=== PATIENT | female | born 1965 | race Caucasian/White ===

== ENCOUNTER 2020-11-08 11:32 | Emergency (ER) | payer MEDICARE, OTHER ==
[2020-12-05] MEDS ORDERED: HYDROCODON-ACE1 EAC2 PO (08:08)
[2020-12-05] MEDS ORDERED: CLONAZEPAM 1MG T1 MG PO (08:08)
[2020-12-05] MEDS ORDERED: VRAYLAR6 MG PO (08:08)
[2020-12-05] MEDS ORDERED: SERTRALINE HCL100 MG PO (08:09)
[2020-12-05] MEDS ORDERED: BUPROPION XL300 MG PO (08:09)
[2020-12-05] MEDS ORDERED: BUMETANIDE0.5 MG PO (08:09)
[2020-12-05] MEDS ORDERED: BUMEX1 MG PO (08:10)
[2020-12-05] MEDS ORDERED: DIGOXIN250 MCG PO (08:11)
[2020-12-05] MEDS ORDERED: CARTIA XT180 MG PO (08:11)
[2020-12-05] MEDS ORDERED: TRULICITY1.5 MG/0.5 SC (08:12)
[2020-12-05] MEDS ORDERED: METFORMIN HCL500 M1 PO (08:12)
[2020-12-05] MEDS ORDERED: WARFARIN SODIUM5 MG PO (08:13)
[2020-12-05] MEDS ORDERED: ROSUVASTATIN CA10 MG PO (08:13)
[2020-12-05] MEDS ORDERED: IRON159 MG PO (08:14)
[2020-12-05] MEDS ORDERED: FAMOTIDINE20 MG PO (08:14)
[2020-12-05] MEDS ORDERED: BIOTIN1 M1 PO (08:15)
[2020-12-05] MEDS ORDERED: CENTRUM ADULT120 MCG PO (08:15)
[2020-12-05] MEDS ORDERED: VITAMIN D310 MCG PO (08:15)
[2020-12-05] MEDS ORDERED: ASCORBIC ACID500 MG PO (08:16)
[2020-12-10] MEDS ORDERED: PERCOCET 5-3251 EACH PO (07:08)
== END 2020-11-08 14:09 | disposition home or self-care (01) ==
LOC: FER 11:32
DX: S80.01XA Contusion of right knee, initial encounter (principal); M17.11 Unilateral primary osteoarthritis, right knee; F17.210 Nicotine dependence, cigarettes, uncomplicated; I48.91 Unspecified atrial fibrillation; Z23 Encounter for immunization; W01.0XXA Fall on same level from slipping, tripping and stumbling without subsequent striking against object, initial encounter; Y92.830 Public park as the place of occurrence of the external cause
CPT/HCPCS: 73130; 73564; 90471; 90714

== ENCOUNTER → 2020-12-10 | Day surgery (SDC) | payer MEDICARE, OTHER ==
[~2020-12-10] VITALS: Ht 162.6 cm; Wt 127.2 kg
[~2020-12-10] MED LIST: ASCORBIC ACID500 MG PO; BIOTIN1 M1 PO; BUMETANIDE0.5 MG PO; BUMEX1 MG PO; BUPROPION XL300 MG PO; CARTIA XT180 MG PO; CENTRUM ADULT120 MCG PO; CLONAZEPAM 1MG T1 MG PO; DIGOXIN250 MCG PO; FAMOTIDINE20 MG PO; HYDROCODON-ACE1 EAC2 PO; IRON159 MG PO; METFORMIN HCL500 M1 PO; PERCOCET 5-3251 EACH PO; ROSUVASTATIN CA10 MG PO; SERTRALINE HCL100 MG PO; TRULICITY1.5 MG/0.5 SC; VITAMIN D310 MCG PO; VRAYLAR6 MG PO; WARFARIN SODIUM5 MG PO
[2020-12-10 13:11] LABS: HCT 38.8 % (37.0-47.0); MCH 31.8 pg (25.0-31.0); MCHC 33.5 g/dL (32.0-36.0); MCV 94.9 fL (78.0-100.0); MPV 9.8 fL (6.0-9.5); RBC 4.09 M/uL (4.20-5.40); RDW 13.1 % (11.5-14.0); WBC 9.3 K/uL (4.0-10.5)
[2020-12-10 13:16] LABS: INR 1.05 (0.9-1.2); PTT 27.7 SECONDS (22.2-34.7)
[2020-12-10 13:33] LABS: ALBUMIN 3.5 g/dL (3.4-5.0); BILIRUBIN - TOTAL 0.4 mg/dL (0.2-1.0); BUN/CREAT RATIO (CALC) 12.7 RATIO; CREATININE 0.71 mg/dL (0.51-0.95); GLOBULIN (CALCULATION) 3.1 g/dL; POTASSIUM 4.2 mmol/L (3.5-5.1); TOTAL PROTEIN 6.6 g/dL (6.4-8.2)
== END | disposition home or self-care (01) ==
LOC: FAS 11:45
PROVIDERS: Orthopaedic Surgery
DX: G56.03 Carpal tunnel syndrome, bilateral upper limbs (principal); M79.7 Fibromyalgia; E11.9 Type 2 diabetes mellitus without complications; M19.90 Unspecified osteoarthritis, unspecified site; F17.210 Nicotine dependence, cigarettes, uncomplicated; G47.30 Sleep apnea, unspecified; I48.91 Unspecified atrial fibrillation; Z79.01 Long term (current) use of anticoagulants; Z79.84 Long term (current) use of oral hypoglycemic drugs; Z79.899 Other long term (current) drug therapy
CPT/HCPCS: 36415; 80053; 82962; 85610; 85730; 93005; J2250; J2405; J2704; J3010; J7120

== ENCOUNTER → 2021-04-09 | Day surgery (SDC) | payer MEDICARE, OTHER ==
[~2021-04-09] VITALS: Ht 162.6 cm; Wt 127.2 kg
[2021-04-09 07:27] LABS: HCT 39.8 % (37.0-47.0); HGB 12.9 g/dl (12.5-16.0); MCH 30.7 pg (25.0-31.0); MCHC 32.4 g/dL (32.0-36.0); MCV 94.8 fL (78.0-100.0); MPV 9.4 fL (6.0-9.5); RBC 4.2 M/uL (4.20-5.40); RDW 13.5 % (11.5-14.0); WBC 10.5 K/uL (4.0-10.5)
[2021-04-09 07:34] LABS: INR 0.96 (0.9-1.2); PROTHROMBIN TIME 12.2 SECONDS (11.8-13.4)
[2021-04-09 07:35] LABS: PTT 27.1 SECONDS (24.4-34.7)
[2021-04-09 07:41] LABS: ALBUMIN 3.3 g/dL (3.4-5.0); BILIRUBIN - TOTAL 0.3 mg/dL (0.2-1.0); BUN/CREAT RATIO (CALC) 15.5 RATIO; CREATININE 0.71 mg/dL (0.51-0.95); GLOBULIN (CALCULATION) 3.2 g/dL; TOTAL PROTEIN 6.5 g/dL (6.4-8.2)
== END | disposition home or self-care (01) ==
LOC: FAS 06:32
PROVIDERS: Orthopaedic Surgery
DX: G56.01 Carpal tunnel syndrome, right upper limb (principal); M79.7 Fibromyalgia; K21.9 Gastro-esophageal reflux disease without esophagitis; E11.9 Type 2 diabetes mellitus without complications; F17.200 Nicotine dependence, unspecified, uncomplicated; G47.30 Sleep apnea, unspecified; I48.91 Unspecified atrial fibrillation; Z79.01 Long term (current) use of anticoagulants; Z79.84 Long term (current) use of oral hypoglycemic drugs; Z79.899 Other long term (current) drug therapy
CPT/HCPCS: 36415; 80053; 85610; 85730; J1100; J1885; J2001; J2250; J2405; J2704; J3010; J7120